=== PATIENT | female | born 1985 | race Caucasian/White ===

== ENCOUNTER 2021-08-20 21:25 | Emergency (ER) | payer BC, MEDICAID ==
[~2021-08-20] VITALS: Ht 149.9 cm; Wt 100.7 kg
[~2021-08-20 21:25] MED LIST: CYAN500T16 PO; ESOM40CA PO; HYDR-3468 PO; Hydrocodone/Acetaminophen PO; NPH,100V5 SQ; PREN1TAB59 PO
[2021-08-20 22:58] VITALS: BP 162/99
--- NOTE | 2021-08-20 23:10 | ER.PDOC ---
General Chief Complaint: Toothache Stated Complaint: DENTAL PAIN & SWELLING Time seen by MD: 22:54 Source: patient Exam Limitations: no limitations History of Present Illness Initial Comments the esparza of her car fell on her mouth region and hit the left side of her jaw. She had a chipped tootth and concerned about an infection. Sh ei sscheduled to see a dentist teresa few days. The patient declined an xray and just wants an antibiotic and pain control Timing/Duration: abrupt Associated Symptoms: congestion Severity: mild Relieved By: rest Allergies: Coded Allergies: No Known Allergies (Unverified , 06/25/14) Home Meds Active Scripts [Hydrocodone/Acetaminophen] 1 EACH TABLET No Conflict Check, 2 EACH PO Q4HR PRN for PAIN SEVERE, #30 TABLET 0 Refills Prov:THOMAS GIRALDO MD 05/20/15 Reported Medications Esomeprazole Magnesium (NEXIUM) 40 Mg Capsule.dr, 1 CAP PO DAILY, #30 CAP 5 Refills 04/04/15 Vits W-Ca,Fe,Fa(<1MG) ( VITAMINS) 1 Each Tablet, 1 TAB PO DAILY, #90 TAB 3 Refills 04/04/15 Past Medical History Medical History: diabetes, high cholesterol, hypertension Surgical History: appendectomy, cholecystectomy, hysterectomy Social History Alcohol Use: none Drug Use: none Reviewed Nursing Reviewed: Vital Signs, Abn. Noted, Nursing Assessment Constitutional: no symptoms reported Eyes: no symptoms reported Nose: no symptoms reported Mouth: other (tooth pain) Throat: no symptoms reported Respiratory: no symptoms reported Cardiovascular: no symptoms reported All Other Systems: Reviewed and Negative Physical Exam General Appearance: alert, no distress Head/Neck: head nml inspection, neck nml inspection Eyes: eyes nml inspection, PERRL Mouth: lips, gums nml, no thrush, dental tenderness Throat: pharynx nml Ears/Nose: nml inspection Respiratory: no resp. distress CVS: reg. rate & rhythm NEURO/PSYCH: oriented X3 Results/Orders Results/Orders Vital Signs Date Time Temp Pulse Resp B/P (MAP) Pulse Ox O2 Delivery O2 Flow Rate FiO2 08/20/21 22:58 98.3 60 16 100 ER DEPART Departure Time of Disposition: 23:09 Disposition: 01 HOME / SELF CARE / HOMELESS Impression: Primary Impression: Pain, dental Condition: Stable Referrals: PCP,UNKNOWN (PCP) PRIMARY CARE PROVIDER Duration or Time Spent with Pa: 6 DARRELL COHEN MD Aug 20, 2021 23:10
[2021-08-20] MEDS ORDERED: AMOX1TAB63 PO (23:22)
[2021-08-20] MEDS ORDERED: ACET1TAB34 PO (23:22)
[2021-08-20] MEDS ORDERED: TORADOL IM STA (23:33)
[2021-08-20] MEDS ORDERED: TORADOL ONE ×2 (23:36)
== END 2021-08-20 23:45 | disposition home or self-care (01) ==
LOC: ER 21:25
DX: K08.89 Other specified disorders of teeth and supporting structures (principal); E11.9 Type 2 diabetes mellitus without complications; E78.00 Pure hypercholesterolemia, unspecified; I10 Essential (primary) hypertension; Z90.49 Acquired absence of other specified parts of digestive tract; Z90.710 Acquired absence of both cervix and uterus
CPT/HCPCS: 96372; 99283; J1885 ×2